=== PATIENT | male | born 1960 | race Caucasian/White ===

== ENCOUNTER 2018-08-01 17:18 | Emergency (ER) | payer OTHER ==
[2018-08-01 17:24] VITALS: TEMP 98; BMI 22.4
[2018-08-01] MEDS ORDERED: ASPIRIN 81 MG CHEWABLE TABLETS ONE (17:27)
[2018-08-01] MEDS ORDERED: NITROGLYCERIN SUBLINGUAL 1/150 0.4 MG TAB ONE (17:27)
[2018-08-01] MEDS ORDERED: ASPIRIN 81 MG CHEWABLE TABLETS PO ONE (17:29)
[2018-08-01] MEDS ORDERED: NITROGLYCERIN SUBLINGUAL 1/150 0.4 MG TAB SL ONE ×3 (17:29→18:00)
[2018-08-01] MEDS ORDERED: ATORVASTATIN CA 80 MG TABLET (FP) PO ONE (17:30)
[2018-08-01] MEDS ORDERED: HEPARIN NA (PORCINE) 5,000 UNITS/ML 1ML VIAL IVPUSH PRN ×2 (17:31)
[2018-08-01] MEDS: ASPIRIN 81 MG CHEWABLE TABLETS PO ONE ×2 (17:32→17:33)
[2018-08-01] MEDS ORDERED: HEPARIN NA (PORCINE) 5,000 UNITS/ML 1ML VIAL ONE (17:34)
[2018-08-01] MEDS ORDERED: ATORVASTATIN CA 80 MG TABLET (FP) ONE (17:34)
[2018-08-01] MEDS ORDERED: HEPARIN INFUSION - 25,000 UNITS/500 ML INFUS.BAG IVPB ONE (17:34)
--- NOTE | 2018-08-01 17:36 | PDOC ---
History of Present Illness - General Chief Complaint: Chest Pain Stated Complaint: CHEST PAIN,PANIC ATTACK Time Seen by Provider: 08/01/18 17:19 - History of Present Illness Initial Comments: 08/01/18 18:07 The patient is a 58 year old male, with a significant past medical history of anxiety and panic attacks, who presents to the emergency department with chest pain. As per patient, his symptoms started while driving his car. He reports pain across his chest starting 20 minutes prior to arrival to ED with associated diaphoresis, lightheadedness, and tingling to the fingers. As per patients , they received the news that there was a recent in the family last night and since then he has been under a significant amount of stress. Patient endorses this is different from his normal panic attacks. Denies tearing chest pain. Denies PAZ or neck pain. He denies any change in strength/sensation or facial droop. He denies any recent fevers, chills, headache or dizziness. He denies any recent nausea, vomit , diarrhea or constipation. He denies any recent dysuria, frequency, urgency or hematuria. Allergies: NKA Past surgical history: None reported. Social History: Social alcohol. Nonsmoker. Denies recreational drug use. Past History - Past Medical History Allergies/Adverse Reactions: Allergies Allergy/AdvReac Type Severity Reaction Status Date / Time No Known Allergies Allergy Verified 08/01/18 17:19 Home Medications: Ambulatory Orders NK [No Known Home Medication] 08/01/18 COPD: No Psychiatric Problems: Yes (panic attack) - Suicide/Smoking/Psychosocial Hx Smoking History: Never smoked Hx Alcohol Use: No Drug/Substance Use Hx: No Review of Systems - Review of Systems Comments:: 08/01/18 17:48 GENERAL/CONSTITUTIONAL: No fever or chills. No weakness. HEAD, EYES, EARS, NOSE AND THROAT: No change in vision. No ear pain or discharge. No sore throat. CARDIOVASCULAR: + chest pain, no shortness of breath, no loss of consciousness RESPIRATORY: No cough, wheezing, or hemoptysis. GASTROINTESTINAL: No nausea, vomiting, diarrhea or constipation. GENITOURINARY: No dysuria, frequency, or change in urination. MUSCULOSKELETAL: No joint or muscle swelling or pain. No neck or back pain. SKIN: No rash NEUROLOGIC: No vertigo, no change in strength/sensation. ENDOCRINE: No increased thirst. No abnormal weight change. HEMATOLOGIC/LYMPHATIC: No anemia, easy bleeding, or history of blood clots. ALLERGIC/IMMUNOLOGIC: No hives or skin allergy. *Physical Exam - Vital Signs Last Vital Signs Temp Pulse Resp BP Pulse Ox 98 F 72 16 121/79 100 08/01/18 17:44 08/01/18 18:02 08/01/18 18:02 08/01/18 18:02 08/01/18 18:02 - Physical Exam Comments: 08/01/18 17:48 "GENERAL: Awake, alert, and fully oriented, in no acute distress. HEAD: No signs of trauma EYES: PERRLA, EOMI, sclera anicteric, conjunctiva clear ENT: Auricles normal inspection, hearing grossly normal, nares patent, oropharynx clear without exudates. Moist mucosa NECK: Nontender, no stepoffs, Normal ROM, supple, no lymphadenopathy, JVD, or masses LUNGS: Breath sounds equal, clear to auscultation bilaterally. No wheezes, and no crackles HEART: Regular rate and rhythm, normal S1 and S2, no murmurs, rubs or gallops ABDOMEN: Soft, nontender, normoactive bowel sounds. No guarding, no rebound. No masses EXTREMITIES: Normal range of motion, no edema. No clubbing or cyanosis. No cords, erythema, or tenderness NEUROLOGICAL: Cranial nerves II through XII intact. 5/5 strength and sensation in all extremities, Normal speech, normal gait, normal cerebellar function SKIN: Warm, Dry, normal turgor, no rashes or lesions noted. Moderate Sedation - Procedure Monitoring Vital Signs: Procedure Monitoring Vital Signs Temperature 98 F 08/01/18 17:44 Pulse Rate 72 08/01/18 18:02 Respiratory Rate 16 08/01/18 18:02 Blood Pressure 121/79 08/01/18 18:02 O2 Sat by Pulse Oximetry (%) 100 08/01/18 18:02 ED Treatment Course - LABORATORY CBC & Chemistry Diagram: 08/01/18 17:25 08/01/18 17:25 - ADDITIONAL ORDERS Additional order review: Laboratory Results 08/01/18 17:25 PT with INR 12.4 INR 1.11 08/01/18 17:25 RBC 4.96 MCV 90.5 MCHC 33.6 RDW 12.5 MPV 10.3 Neutrophils % 71.4 Lymphocytes % 18.3 Monocytes % 8.9 Eosinophils % 0.7 Basophils % 0.7 - RADIOLOGY Radiology Studies Ordered: Category Date Time Status CHEST X-RAY PORTABLE* [RAD] Stat Radiology 08/01/18 17:41 Taken - Medications Given in the ED: ED Medications Discontinued Medications Generic Name Dose Route Start Last Admin Trade Name Freq PRN Reason Stop Dose Admin Aspirin 162 mg 08/01/18 17:25 08/01/18 17:33 Asa - PO 08/01/18 17:26 Not Given ONCE ONE Aspirin 324 mg 08/01/18 17:29 08/01/18 17:33 Asa - PO 08/01/18 17:30 324 mg ONCE ONE Administration Atorvastatin Calcium 80 mg 08/01/18 17:30 08/01/18 17:36 Lipitor - PO 08/01/18 17:31 80 mg ONCE ONE Administration Heparin Sodium (Porcine) 5,000 unit 08/01/18 17:37 08/01/18 17:37 Heparin - IVPUSH 08/01/18 17:38 5,000 unit ONCE STA Administration Morphine Sulfate 4 mg 08/01/18 17:39 08/01/18 17:44 Morphine Injection - IVPUSH 08/01/18 17:40 4 mg ONCE ONE Administration Nitroglycerin 0.4 mg 08/01/18 17:29 08/01/18 17:30 Nitrostat - SL 08/01/18 17:30 0.4 mg ONCE ONE Administration Ticagrelor 180 mg 08/01/18 17:44 08/01/18 17:56 Brilinta - PO 08/01/18 17:45 180 mg NOW STA Administration Medical Decision Making - Medical Decision Making 08/01/18 17:32 58 M with acute onset chest pain 20 minutes prior to arrival. EKG in ED shows ST elevations in I, aVL, V4-V6 with reciprocal depressions in III and aVF. No tearing pain, equal pulses bilaterally, low suspicion for dissection. - Code STEMI activated - [facility] notified - [facility] notified of Code RED transport - Aspirin, heparin, SL nitro, statin, brilinta ordered 08/01/18 17:45 EKG faxed to cards fellow Pt accepted for transfer to [facility] by Dr. 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 Be Reddy MD, attest that this document has been prepared under my direction and personally reviewed by me in its entirety. I further attest, that it accurately reflects all work, treatment, procedures and medical decision -making performed by me.
[2018-08-01] MEDS ORDERED: HEPARIN NA (PORCINE) 5,000 UNITS/ML 1ML VIAL IVPUSH STA (17:37)
[2018-08-01] MEDS ORDERED: morphine CARPU-JECT 4 MG/1 ML DISP.SYRIN IVPUSH ONE (17:39)
[2018-08-01] MEDS ORDERED: morphine SULFATE 4 MG/ML VIAL ONE (17:40)
[2018-08-01] MEDS ORDERED: TICAGRELOR 90 MG TABLET PO STA (17:44)
[2018-08-01] MEDS ORDERED: HEPARIN - 25,000 UNIT in SODIUM CHLORIDE 495 ML IV SCH (17:45)
[2018-08-01] MEDS ORDERED: TICAGRELOR 90 MG TABLET PO ONE (17:56)
[2018-08-01 18:03] VITALS: BP 121/79; PULSE 72
[2018-08-01 18:03] LABS: BASO % 0.7 % (0-2.0); EOS % 0.7 % (0-4.5); HEMATOCRIT 44.9 % (35.4-49); HEMOGLOBIN 15.1 GM/dl (11.7-16.9); LYMPH % 18.3 % (8-40); MCH 30.4 pg (25.7-33.7); MCHC 33.6 g/dl (32.0-35.9); MEAN CELL VOLUME 90.5 fl (80-96); MEAN PLT VOLUME 10.3 fl (7.5-11.1); MONO % 8.9 % (3.8-10.2); NEUT % 71.4 % (42.8-82.8); PLATELET COUNT 260 K/MM3 (134-434); RBC 4.96 M/mm3 (4.00-5.60); RDW 12.5 % (11.9-15.9); WHITE BLOOD COUNT 8.9 K/mm3 (4.0-10.8)
[2018-08-01 18:05] LABS: INR 1.11 (0.82-1.09); PROTHROMBIN TIME (PATIENT) 12.4 SEC (10.2-13.0)
[2018-08-01 18:11] LABS: ALBUMIN 4.5 g/dl (3.5-5.0); ALK PHOS 55 U/L (32-92); ANION GAP 11 MMOL/L (8-16); BILIRUBIN,TOTAL 0.9 mg/dl (0.2-1.0); BLOOD UREA NITROGEN 14 mg/dl (7-18); CALCIUM 9.4 mg/dl (8.4-10.2); CHLORIDE 102 mmol/L (98-107); CO2 21 mmol/L (22-28); CREATININE 0.9 mg/dl (0.6-1.3); GLUCOSE,RANDOM 127 mg/dl (74-106); MAGNESIUM 1.7 mg/dL (1.8-2.4); POTASSIUM 3.4 mmol/L (3.5-5.1); SGOT/AST 24 U/L (10-42); SGPT/ALT 18 U/L (10-40); SODIUM 134 mmol/L (136-145); TOT PROT 7.3 g/dl (6.4-8.3)
--- NOTE | 2018-08-02 09:34 | EKG ---
Test Reason : Blood Pressure : / mmHG Vent. Rate : 082 BPM Atrial Rate : 082 BPM P-R Int : 146 ms QRS Dur : 108 ms QT Int : 382 ms P-R-T Axes : 059 047 009 degrees QTc Int : 446 ms NORMAL SINUS RHYTHM ANTEROLATERAL INFARCT , POSSIBLY ACUTE ACUTE VA / STEMI ABNORMAL ECG NO PREVIOUS ECGS AVAILABLE Confirmed by DAVID BLAND, ERNESTO ([id number]) on 08/02/2018 9:33:43 AM Referred By: DR CHAVEZ Confirmed By:ERNESTO HERNANDEZ MD
== END 2018-08-01 18:05 | disposition short-term general hospital (02) ==
LOC: FER 17:18
PROC: 3E033GC Introduction of Other Therapeutic Substance into Peripheral Vein, Percutaneous Approach (ICD-10-PCS; principal; 2018-08-01)
PROC: 3E033NZ Introduction of Analgesics, Hypnotics, Sedatives into Peripheral Vein, Percutaneous Approach (ICD-10-PCS; 2018-08-01)
DX: I21.3 ST elevation (STEMI) myocardial infarction of unspecified site (principal); F41.9 Anxiety disorder, unspecified
CPT/HCPCS: 36415; 71045-TC-FY; 80053; 82550; 83735; 84484; 85025; 85610; 85730; 93005; 99285-25; J1644